=== PATIENT | male | born 1965 | race Caucasian/White ===

== ENCOUNTER 2018-12-02 20:37 | Emergency (ER) | payer OTHER ==
[~2018-12-02 20:37] MED LIST: ISOVUE-370 76%-LOCM 1 ML ONE
[2018-12-02] MEDS ORDERED: Ibuprofen 200 MG TAB ONE (20:55)
[2018-12-02 21:07] LABS: Hemoglobin 13.5 g/dL (14.0-18.0); Mean Corpuscular HGB CONC 33.2 g/dL (32.0-36.0); Mean Corpuscular Hemoglobin 31.9 pg (27.0-31.0); RBC Distribution Width 12.9 % (11.5-14.5); Red Blood Cell (RBC) Count 4.23 mill/uL (4.70-6.10); White Blood Cell (WBC) Count 4.8 thou/uL (4.8-10.8)
--- NOTE | 2018-12-02 21:13 | RAD ---
Radiograph chest one view: 12/02/2018 at 8:50 PM HISTORY: 53-year-old male with fever, dyspnea, and traumatic chest pain after fall COMPARISON: None FINDINGS: Small region of increased attenuation in the retrocardiac portion of left lower lobe. The rest of the visualized lung webb are essentially clear. No cardiomegaly or mediastinal widening. No pneumothorax is visualized, but this is a supine image which would be relatively insensitive for that . Lateral costophrenic angles are sharp. IMPRESSION: Small region of increased attenuation in the medial base of the left lower lobe. This is nonspecific, and could either represent early pneumonia, pulmonary contusion, or atelectasis.
[2018-12-02 21:27] LABS: ALT (SGPT) 61 U/L (8-55); AST (SGOT) 44 U/L (5-34); Albumin 3.9 g/dL (3.5-5.0); Alkaline Phosphatase 76 U/L (40-150); Anion Gap 10 mmol/L (10-20); BUN (Urea Nitrogen) 7 mg/dL (8.4-25.7); Bilirubin, Total 0.8 mg/dL (0.2-1.2); Calc. Creatinine Clearance 0 mL/min (70-130); Calcium 8.8 mg/dL (7.8-10.44); Carbon Dioxide 26 mmol/L (22-29); Chloride 105 mmol/L (98-107); Estimated GFR-MDRD Greater than 90; Glucose 108 mg/dL (70-105); Potassium 3.8 mmol/L (3.5-5.1); Protein, Total 6.9 g/dL (6.0-8.3); Sodium 137 mmol/L (136-145)
[2018-12-02 21:28] LABS: #Lymphocytes 0.5 thou/uL (1.20-3.40); #Monocytes 0.3 thou/uL (0.11-0.59); #Neutrophils 3.9 thou/uL (1.40-6.50); %Basophils 0.2 % (0.0-1.0); %Eosinophils 0.2 % (0.0-10.0); %Lymphocytes 10.6 % (21.0-51.0); %Monocytes 7.2 % (0.0-10.0); %Neutrophils 81.8 % (42.0-75.0); Mean Platelet Volume 8.5 fL (7.4-10.4); Platelet Count 108 thou/uL (130-400); Platelet Morphology Comment Appears Decreased
--- NOTE | 2018-12-02 21:30 | CT ---
CT brain noncontrast: HISTORY: 53-year-old male status post acute head trauma from fall. Status post syncope and generalized weaknes s. COMPARISON: None available FINDINGS: There is a 4.5 cm wide craniotomy defect at the lateral aspect of the skull, involving the left parie shannon bone. This is bridged by a metallic prosthetic flap. This metallic flap is positioned medial to the bone. It causes streak artifact, which results in decreased sensitivity for the detection of smal l amounts of acute extra-axial hemorrhage. Abutting its medial aspect, there is a moderate size region of left lateral cerebral encephalomalacia and gliosis. The ventricles are normal in size and configuration. Outside of the area mentioned above, there is no evidence of acute intracranial hemorrhage. No mass effect or midline shift. No acute calvarial fracture. IMPRESSION: 1. Old left craniotomy defect bridged by metallic dural flap positioned medial to the bone. 2. Deep to that, there is a region of old insult in the left cerebral hemisphere. 3. No definite acute findings.
--- NOTE | 2018-12-02 21:34 | CT ---
CT cervical spine noncontrast: Date: 12/02/2018 HISTORY: cervical trauma FINDINGS: Alignment is normal. Vertebral body heights are maintained. No prevertebral soft tissue swelling. No perched or jumped facets. No fracture. Anterior metallic plate and screws at C4, C5, and C6. Interbody cage at the C4-5 disc space. No osseous ankylosis. Moderate to severe degenerative facet di sease bilaterally in the upper cervical spine. Moderate to severe degenerative disc disease at C3-4 and C6-7. IMPRESSION: 1. No acute fracture. 2. Status post anterior cervical discectomy and fusion at C4-5-6. 3. Cervical spondylosis.
[2018-12-02 21:56] LABS: Bilirubin Negative (Negative); Blood, Urine Negative (Negative); Clarity CLOUDY (Clear); Glucose, Urine (Dipstick) Negative (Negative); Leukocyte Negative (Negative); Nitrite Negative (Negative); Protein, Urine (Dipstick) Negative (Neg-Trace); Specific Gravity, Urine 1.016 (1.002-1.036); pH, Urine 7.5 (5.0-9.0)
--- NOTE | 2018-12-02 22:01 | CT ---
CT thorax with contrast CT abdomen with contrast CT pelvis with contrast CT thoracic spine with contrast CT lumbar spine with contrast: (Trauma protocol) HISTORY: Trauma to the chest, abdomen, and pelvis TECHNIQUE: IV administration of iodinated contrast media. No oral contrast media. Single phase scans of thorax, abdomen, and pelvis. Sagittal reconstructions of thoracic and lumbar spine. FINDINGS: Lungs: No contusion. Pleura: No pneumothorax or hemothorax. Thoracic aorta: No dissection or rupture. Mediastinum: No hematoma. Abdomen and pelvis: Liver: No laceration Spleen: No laceration Pancreas: No surrounding fluid or fat stranding. Kidneys: No hydronephrosis or laceration. Bladder: No gross evidence of rupture. Abdominal aorta: No dissection or rupture. Small bowel: No dilation. Colon: No adjacent fat stranding. Free air: None. Free fluid: None. Skeleton: Ribs: Nonacute, nonunited or incompletely united fracture at anterior aspect of left fourth rib. No g rossly displaced acute fracture. Sternum: Scratch that there is an old healed fracture. No grossly displaced acute fracture. Thoracic spine: No acute compression fracture. Lumbar spine: Old mild compression fracture of T12. Loss of height of L2, probably representing an ol d compression fracture. Moderately large Schmorl's nodes at superior endplate of T12 and inferior endplate of T12. No definite acute compression fracture. Bilateral pedicle screws at L3 and L4, where there is laminectomy defect. Pelvis: No grossly displaced acute fracture. No dislocation. IMPRESSION: 1. No evidence of acute traumatic injury within the thorax, abdomen, or pelvis. 2. Old fractures, including sternum, left anterior fourth rib, T12 vertebra, and L2 vertebra.
--- NOTE | 2018-12-02 22:06 | RAD ---
Radiograph right shoulder 3 views: HISTORY: Traumatic right shoulder pain due to fall FINDINGS: No dislocation. No displaced acute fracture identified. IMPRESSION: Negative
--- NOTE | 2018-12-02 22:06 | RAD ---
Radiograph left shoulder 3 views: HISTORY: Acute traumatic left shoulder pain due to fall FINDINGS: No dislocation. No acute fracture identified. IMPRESSION: Negative
== END 2018-12-02 22:39 ==
LOC: EEVIPCON 20:37 → ERS 20:37
DX: J11.1 Influenza due to unidentified influenza virus with other respiratory manifestations (principal); G43.909 Migraine, unspecified, not intractable, without status migrainosus; Z87.891 Personal history of nicotine dependence; Z79.899 Other long term (current) drug therapy; W10.9XXA Fall (on) (from) unspecified stairs and steps, initial encounter
CPT/HCPCS: 36415; 70450; 71045; 71260; 72125; 74177; 80053; 81003; 83605; 85025; 87040; 87077; 87086; 87149; 87186; 87804; 93005; 94760; 96360; Q9966